=== PATIENT | male | born 1955 | race Caucasian/White ===

== ENCOUNTER 2019-03-21 11:45 | Inpatient (IN) | payer MEDICARE, MEDICAID ==
[~2019-03-21] VITALS: Ht 182.9 cm; Wt 88.0 kg
[2019-03-21] MEDS ORDERED: SODIUM CHLORIDE 0.9% 1,000 ML IV ONE (12:22)
[2019-03-21 12:30] LABS: BASOPHILS % 1.4 % (0.0-2.0); EOSINOPHILS % 1.4 % (0.0-5.0); HEMATOCRIT. 45.9 % (42.0-52.0); HEMOGLOBIN. 15.3 g/dL (14.0-18.0); LYMPHOCYTES % 13.8 % (20.0-50.0); MEAN CORPUSCULAR HEMOGLOBIN 30.5 pg (28.0-32.0); MEAN CORPUSCULAR VOLUME 91.4 fL (80.0-94.0); MEAN PLATELET VOLUME 7.9 fl (7.4-10.4); MONOCYTES % 10.5 % (2.0-8.0); NEUTROPHILS % 72.9 % (40.0-76.0); PLATELET 147 x1000/uL (130-400); RED BLOOD CELL COUNT 5.02 mill/uL (4.7-6.1); RED CELL DISTRIBUTION WIDTH 15.3 % (11.6-14.6)
[2019-03-21 12:33] LABS: CHLORIDE 107 mEq/L (98-107); CLARITY URINE CLEAR (CLEAR); COLOR URINE YELLOW (YELLOW); KETONES URINE NEGATIVE (NEGATIVE); LEUKOCYTE ESTERASE URINE NEGATIVE (NEGATIVE); NITRITE URINE NEGATIVE (NEGATIVE); OCCULT BLOOD URINE NEGATIVE (NEGATIVE); PROTEIN URINE NEGATIVE (NEGATIVE); SPECIFIC GRAVITY URINE 1.003 (1.005-1.030); UROBILINOGEN URINE 0.2 E.U./dL (0.2-1.0)
[2019-03-21 12:41] LABS: CREATINE KINASE 110 IU/L (39-308)
[2019-03-21] MEDS ORDERED: ACETAMINOPHEN 325MG TABLET PO PRN ×2 (17:45→18:15)
[2019-03-21] MEDS ORDERED: LACTATED RINGERS 1,000 ML IV ONE (18:00)
[2019-03-21] MEDS ORDERED: GUAIFENESIN 200MG/10ML SUGAR FREE UDC PO PRN (18:15)
[2019-03-21] MEDS ORDERED: DIPHENHYDRAMINE 50MG/ML VIAL IV PRN (18:15)
[2019-03-21] MEDS ORDERED: ACETAMINOPHEN 650MG SUPP PR PRN (18:15)
[2019-03-21] MEDS ORDERED: NA PHOS,M-B/NA PHOS,DI-BA ENEMA 118ML PR PRN (18:15)
[2019-03-21] MEDS ORDERED: DOCUSATE SODIUM 100MG CAPSULE PO PRN (18:15)
[2019-03-21] MEDS ORDERED: IPRATROPIUM/ALBUTEROL 0.5-3(2.5)MG/3ML NEB NEB PRN (18:15)
[2019-03-21] MEDS ORDERED: DEXTROSE 50% WATER 50ML SYRINGE IV PRN (18:15)
[2019-03-21] MEDS ORDERED: CLONIDINE 0.1MG TABLET PO PRN (18:15)
[2019-03-21] MEDS ORDERED: ONDANSETRON HCL 4MG/2ML INJ IV PRN (18:15)
[2019-03-21] MEDS ORDERED: MAGNESIUM/ALUMINUM HYDROXIDE/SIMETHICONE 30ML UDC PO PRN (18:15)
[2019-03-21] MEDS ORDERED: HYDROCODONE/ACETAMINOPHEN 5/325MG TABLET PO PRN (18:15)
[2019-03-21] MEDS: HYDROCODONE/ACETAMINOPHEN 5/325MG TABLET PO PRN (18:53)
[2019-03-21 19:00] VITALS: BP 161/92
[2019-03-21 19:56] LABS: BG BASE EXCESS 0.4 mmol/L (-2.0-2.0); BG CARBOXYHEMOGLOBIN 1.2 % (0.5-1.5); BG DEOXYHEMOGLOBIN 8.6 % (0.0-5.0); BG FRACTION INSPIRED OXYGEN 21; BG HCO3 ACT 23.3 mmol/L (22.0-26.0); BG METHEMOGLOBIN 0.1 % (0.0-1.5); BG OXYGEN SATURATION 91.3 % (92.0-98.5); BG OXYHEMOGLOBIN 90.1 % (94.0-97.0); BG PCO2 32.4 mmHg (35.0-45.0); BG PH 7.474 (7.350-7.450); BG PO2 59.4 mmHg (75.0-100.0); BG SAMPLE SITE RIGHT RADIAL; BG TOTAL HEMOGLOBIN 14.3 g/dL (12.0-18.0); BG VENT MODE ROOM AIR
[2019-03-21 20:00] VITALS: BP 153/87
[2019-03-21] MEDS: ENOXAPARIN 40MG/0.4ML SYR SUBCUT SCH (20:13)
[2019-03-21] MEDS: DEXT 5%/0.45% NACL 1000ML 1,000 ML IV SCH (20:13)
[2019-03-21] MEDS: BLOOD SUGAR DIAGNOSTIC STRIP TEST SCH (20:30)
[2019-03-21 22:05] LABS: PROTHROMBIN TIME 10.1 sec (9.6-11.0)
[2019-03-22] VITALS: BP 136/70
[2019-03-22] MEDS: HYDROCODONE/ACETAMINOPHEN 5/325MG TABLET PO PRN ×4 (00:20→20:03)
[2019-03-22 04:00] VITALS: BP 122/78
[2019-03-22 06:14] LABS: CHLORIDE 106 mEq/L (98-107)
[2019-03-22 06:19] LABS: BASOPHILS % 1.2 % (0.0-2.0); EOSINOPHILS % 4.7 % (0.0-5.0); HEMATOCRIT. 39.4 % (42.0-52.0); HEMOGLOBIN. 13.1 g/dL (14.0-18.0); LYMPHOCYTES % 20.6 % (20.0-50.0); MEAN CORPUSCULAR HEMOGLOBIN 30.4 pg (28.0-32.0); MEAN CORPUSCULAR VOLUME 91.5 fL (80.0-94.0); MEAN PLATELET VOLUME 8.3 fl (7.4-10.4); MONOCYTES % 13.8 % (2.0-8.0); NEUTROPHILS % 59.7 % (40.0-76.0); PLATELET 122 x1000/uL (130-400); RED CELL DISTRIBUTION WIDTH 15.1 % (11.6-14.6)
[2019-03-22 06:24] LABS: LDL CHOLESTEROL 58 mg/dL (5-100)
[2019-03-22 06:25] LABS: CREATINE KINASE 95 IU/L (39-308)
[2019-03-22 06:26] LABS: CREATINE KINASE MB FRACTION < 1.0 ng/mL (0.5-3.6)
[2019-03-22 06:27] LABS: T4 FREE 0.54 ng/dL (0.76-1.46)
[2019-03-22 06:28] LABS: HDL CHOLESTEROL 71 mg/dL (40-59)
[2019-03-22 06:37] LABS: CLARITY URINE CLEAR (CLEAR); COLOR URINE YELLOW (YELLOW); KETONES URINE NEGATIVE (NEGATIVE); LEUKOCYTE ESTERASE URINE NEGATIVE (NEGATIVE); NITRITE URINE NEGATIVE (NEGATIVE); OCCULT BLOOD URINE TRACE (NEGATIVE); PH URINE 6.5 (4.5-8.0); PROTEIN URINE NEGATIVE (NEGATIVE)
[2019-03-22] MEDS: BLOOD SUGAR DIAGNOSTIC STRIP TEST SCH ×4 (06:40→18:43)
[2019-03-22 08:00] VITALS: BP 140/90
[2019-03-22 08:39] LABS: *AMPHETAMINES SCREEN URINE NEGATIVE (NEGATIVE); *BARBITURATES SCREEN URINE NEGATIVE (NEGATIVE)
[2019-03-22 08:40] LABS: *BENZODIAZEPINES SCREEN URINE NEGATIVE (NEGATIVE); *COCAINE SCREEN URINE NEGATIVE (NEGATIVE); CANNABINOID URINE SCREEN NEGATIVE (NEGATIVE); METHADONE URINE SCREEN NEGATIVE (NEGATIVE); OPIATES URINE SCREEN PRESUMTIVE POSITIVE (NEGATIVE); PHENCYCLIDINE URINE SCREEN NEGATIVE (NEGATIVE)
[2019-03-22] MEDS: DEXT 5%/0.45% NACL 1000ML 1,000 ML IV SCH (10:55)
[2019-03-22 12:00] VITALS: BP 115/67
[2019-03-22] MEDS: LEVOTHYROXINE SODIUM 25MCG TABLET PO SCH (13:23)
[2019-03-22 16:06] VITALS: BP 136/67
[2019-03-22] MEDS: ENOXAPARIN 40MG/0.4ML SYR SUBCUT SCH (18:00)
[2019-03-22] MEDS: MUPIROCIN 2% OINT 22GM TOP SCH (18:41)
[2019-03-22 20:00] VITALS: BP 148/85
[2019-03-22] MEDS: LORAZEPAM 0.5MG TABLET PO PRN (22:54)
[2019-03-23] VITALS: BP 121/61
[2019-03-23] MEDS: DEXT 5%/0.45% NACL 1000ML 1,000 ML IV SCH ×2 (03:35→20:04)
[2019-03-23 04:00] VITALS: BP 92/49
[2019-03-23] MEDS: LEVOTHYROXINE SODIUM 25MCG TABLET PO SCH (06:21)
[2019-03-23] MEDS: BLOOD SUGAR DIAGNOSTIC STRIP TEST SCH ×4 (06:42→21:30)
[2019-03-23 07:26] LABS: BASOPHILS % 1.1 % (0.0-2.0); EOSINOPHILS % 4.6 % (0.0-5.0); HEMATOCRIT. 39.8 % (42.0-52.0); HEMOGLOBIN. 13.3 g/dL (14.0-18.0); LYMPHOCYTES % 21.7 % (20.0-50.0); MEAN CORPUSCULAR HEMOGLOBIN 30.2 pg (28.0-32.0); MEAN CORPUSCULAR VOLUME 90.5 fL (80.0-94.0); MEAN PLATELET VOLUME 8.7 fl (7.4-10.4); MONOCYTES % 14.3 % (2.0-8.0); NEUTROPHILS % 58.3 % (40.0-76.0); PLATELET 127 x1000/uL (130-400)
[2019-03-23 07:30] LABS: CHLORIDE 105 mEq/L (98-107)
[2019-03-23] MEDS: MUPIROCIN 2% OINT 22GM TOP SCH (08:52)
[2019-03-23] MEDS: HYDROCODONE/ACETAMINOPHEN 5/325MG TABLET PO PRN ×3 (11:16→21:30)
[2019-03-23 12:00] VITALS: BP 110/74
[2019-03-23 16:00] VITALS: BP 116/74
[2019-03-23] MEDS: ENOXAPARIN 40MG/0.4ML SYR SUBCUT SCH (18:30)
[2019-03-23 20:00] VITALS: BP 139/90
[2019-03-24] VITALS: BP 140/94
[2019-03-24 04:00] VITALS: BP 126/82
[2019-03-24] MEDS: BLOOD SUGAR DIAGNOSTIC STRIP TEST SCH ×4 (05:57→21:31)
[2019-03-24] MEDS: LEVOTHYROXINE SODIUM 25MCG TABLET PO SCH (05:57)
[2019-03-24 08:00] VITALS: BP 133/81
[2019-03-24] MEDS: HYDROCODONE/ACETAMINOPHEN 5/325MG TABLET PO PRN ×3 (08:01→21:30)
[2019-03-24] MEDS: MUPIROCIN 2% OINT 22GM TOP SCH ×2 (08:01→21:31)
[2019-03-24 12:00] VITALS: BP 126/70
[2019-03-24] MEDS: DEXT 5%/0.45% NACL 1000ML 1,000 ML IV SCH (12:33)
[2019-03-24 16:00] VITALS: BP 130/81
[2019-03-24] MEDS: ENOXAPARIN 40MG/0.4ML SYR SUBCUT SCH (18:05)
[2019-03-24 20:00] VITALS: BP 121/65
[2019-03-25] VITALS: BP 126/75
[2019-03-25 04:00] VITALS: BP 118/63
[2019-03-25] MEDS: LEVOTHYROXINE SODIUM 25MCG TABLET PO SCH (05:29)
[2019-03-25] MEDS: BLOOD SUGAR DIAGNOSTIC STRIP TEST SCH ×2 (05:29→12:21)
[2019-03-25] MEDS: DEXT 5%/0.45% NACL 1000ML 1,000 ML IV SCH (05:35)
[2019-03-25] MEDS: HYDROCODONE/ACETAMINOPHEN 5/325MG TABLET PO PRN ×2 (05:41→14:54)
[2019-03-25 08:00] VITALS: BP 137/84
[2019-03-25] MEDS ORDERED: LEVO25TA2 MT (11:55)
[2019-03-25 12:00] VITALS: BP 139/86
[2019-03-25] MEDS: LORAZEPAM 0.5MG TABLET PO PRN (14:54)
[2019-03-25] MEDS: ENOXAPARIN 40MG/0.4ML SYR SUBCUT SCH (17:07)
[2019-03-25 18:05] VITALS: BP 139/86
[2019-03-25 20:00] VITALS: BP 132/83
[2019-03-26] VITALS: BP 128/71
[2019-03-26 04:00] VITALS: BP 134/80
[2019-03-26] MEDS: LORAZEPAM 0.5MG TABLET PO PRN (09:35)
== END 2019-03-26 09:53 | disposition home or self-care (01) | DRG 641 ==
LOC: ER 12:14 → 6EST 14:44 → EDBEDREQ 14:51 → EDBEDREQTM 14:51 → ENRESERV 15:01
PROVIDERS: ADMIT Internal Medicine; ATTEND Internal Medicine
DX: E16.2 Hypoglycemia, unspecified (principal); R32 Unspecified urinary incontinence; I10 Essential (primary) hypertension; R74.0 Nonspecific elevation of levels of transaminase and lactic acid dehydrogenase [LDH]; E03.9 Hypothyroidism, unspecified; R53.1 Weakness; F17.210 Nicotine dependence, cigarettes, uncomplicated; Z60.2 Problems related to living alone; Z91.19 Patient's noncompliance with other medical treatment and regimen; Z59.0 Homelessness; Z72.89 Other problems related to lifestyle; Z87.01 Personal history of pneumonia (recurrent)
CPT/HCPCS: 36415; 36600; 71045; 80048; 80061; 80305; 81003; 82140; 82375; 82550; 82553; 82805; 82962; 83036; 84439; 84443; 84484; 93005; 93306; 93970; 97116; 97162; 99291; A6261; J1650; J7030

== ENCOUNTER 2019-05-18 05:01 | Emergency (ER) | payer OTHER ==
[~2019-05-18] VITALS: Ht 172.7 cm; Wt 100.0 kg
[~2019-05-18 05:01] MED LIST: LEVO25TA2 MT
[2019-05-18 05:04] VITALS: BP 160/80
== END 2019-05-18 09:03 | disposition home or self-care (01) ==
LOC: ER 05:01
DX: Z48.00 Encounter for change or removal of nonsurgical wound dressing (principal); G62.9 Polyneuropathy, unspecified; I10 Essential (primary) hypertension; E03.9 Hypothyroidism, unspecified
CPT/HCPCS: 99284